=== PATIENT | male | born 1940 | race Caucasian/White ===

== ENCOUNTER → 2019-12-28 | Outpatient (CLI) | payer OTHER ==
[~2019-12-28] MED LIST: ASPIR 8181 MG PO; ATENOLOL50 MG PO; CLOPIDOGREL75 MG PO; GLYBURIDE-METF1 EACH PO; PRAVASTATIN SOD20 MG PO; VITAMIN D1000 UNIT PO; ZESTRIL20 MG PO
--- NOTE | 2019-12-28 10:19 | Diagnostic Imaging Report ---
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 No focal consolidation or pulmonary edema. Pleura:No pleural effusion. No pneumothorax. Heart/Mediastinum:The cardiomediastinal silhouette is normal in size and contour. Bones/Soft Tissues: No acute osseous abnormality. Mild to moderate degenerative changes of the spine are noted. Upper abdomen: Unremarkable. IMPRESSION: No suspicious infiltrate or calcification. Consider cross-sectional imaging for more sensitive evaluation if clinically indicated. Signed by: Maynor Mckay MD on 12/28/2019 10:15 AM
== END ==
LOC: RAD 09:12
PROVIDERS: ATTEND Family Medicine
DX: J61 Pneumoconiosis due to asbestos and other mineral fibers (principal)
CPT/HCPCS: 71046

== ENCOUNTER → 2020-05-23 | Outpatient (CLI) | payer MEDICARE | LOC: RAD 07:57 | PROVIDERS: ATTEND Family Medicine | DX: R42 Dizziness and giddiness (principal); I10 Essential (primary) hypertension | CPT/HCPCS: 93306; 93880 ==

== ENCOUNTER 2021-10-24 11:38 | Emergency (ER) | payer MEDICARE ==
[~2021-10-24] VITALS: Ht 170.2 cm; Wt 57.2 kg
[2021-10-24 13:04] LABS: EOSINOPHILS % 0.4 % (0.0-6.0); HEMATOCRIT 44.5 % (38.2-49.6); HEMOGLOBIN 14.6 g/dL (14.0-18.0); LYMPHOCYTES # (AUTO) 0.9 (1.0-3.2); LYMPHOCYTES % 10.9 % (18.0-39.1); MEAN CORPUSCULAR HEMOGLOBIN 28.9 pg (28-32); MEAN CORPUSCULAR HGB CONC 32.8 g/dL (31-35); MEAN CORPUSCULAR VOLUME 88.1 fL (81-99); MONOCYTES # (AUTO) 0.8 (0.2-0.8); MONOCYTES % 9.1 % (4.4-11.3); NEUTROPHILS # (AUTO) 6.8 (2.1-6.9); NEUTROPHILS % 79.2 % (38.7-80.0); PLATELET COUNT 247 x10e3/uL (140-360); RED BLOOD COUNT 5.05 x10e6/uL (4.3-5.7); RED CELL DISTRIBUTION WIDTH 13.1 % (11.7-14.4)
[2021-10-24 13:25] LABS: ALBUMIN 3.5 g/dL (3.5-5.0); ALBUMIN/GLOBULIN RATIO 1.1 (0.8-2.0); ANION GAP 14.6 mmol/L (8-16); CALCIUM 8.5 mg/dL (8.4-10.2); CREATININE, SERUM 0.85 mg/dL (0.72-1.25); POTASSIUM 3.6 mmol/L (3.5-5.1)
[2021-10-24 13:52] LABS: COLOR,URINE YELLOW (YELLOW)
[2021-10-24 13:56] LABS: LEUKOCYTE ESTERASE ,URINE NEGATIVE (NEGATIVE)
[2021-10-24 13:57] LABS: CLARITY,URINE CLEAR (CLEAR); NITRITE,URINE NEGATIVE (NEGATIVE)
[2021-10-24 13:58] LABS: KETONES,URINE NEGATIVE (NEGATIVE); PROTEIN,URINE DIPSTICK NEGATIVE (NEGATIVE); URINE UROBILINOGEN 1 mg/dL (0.2 - 1)
[2021-10-24 14:00] LABS: RBC,URINE 0-5 /HPF (0-5); WBC,URINE (MAN) 0-5 /HPF (0-5)
[2021-10-24 14:01] LABS: AMORPHOUS SEDIMENT,URINE MODERATE (FEW); BACTERIA,URINE FEW /HPF; EPITHELIAL CELLS,URINE FEW /LPF
[2021-10-24 15:07] VITALS: BP 125/74
== END 2021-10-24 14:50 | disposition home or self-care (01) ==
LOC: ER 11:57
DX: R53.1 Weakness (principal); U09.9 Post COVID-19 condition, unspecified; I10 Essential (primary) hypertension; G30.9 Alzheimer's disease, unspecified; F02.80 Dementia in other diseases classified elsewhere, unspecified severity, without behavioral disturbance, psychotic disturbance, mood disturbance, and anxiety; Z95.810 Presence of automatic (implantable) cardiac defibrillator
CPT/HCPCS: 36415; 71045; 80053; 81001; 84484; 85025

== ENCOUNTER 2023-12-27 05:53 | Day surgery (SDC) | payer MEDICARE ==
[2023-12-23 13:35] LABS: BASOPHILS # (AUTO) 0.1 (0.0-0.1); EOSINOPHILS # (AUTO) 0.3 (0.0-0.4); EOSINOPHILS % 4.5 % (0.0-6.0); HEMATOCRIT 43.4 % (38.2-49.6); HEMOGLOBIN 13.9 g/dL (14.0-18.0); LYMPHOCYTES # (AUTO) 1.9 (1.0-3.2); LYMPHOCYTES % 26.8 % (18.0-39.1); MEAN CORPUSCULAR HEMOGLOBIN 30.8 pg (28-32); MEAN CORPUSCULAR VOLUME 96.2 fL (81-99); MONOCYTES # (AUTO) 0.5 (0.2-0.8); MONOCYTES % 6.7 % (4.4-11.3); NEUTROPHILS # (AUTO) 4.3 (2.1-6.9); NEUTROPHILS % 60.7 % (38.7-80.0); PLATELET COUNT 236 x10e3/uL (140-360); RED BLOOD COUNT 4.51 x10e6/uL (4.3-5.7); RED CELL DISTRIBUTION WIDTH 12.7 % (11.7-14.4); WHITE BLOOD COUNT 7.05 x10e3/uL (4.8-10.8)
[2023-12-23 13:53] LABS: INR 1.13; PROTHROMBIN TIME 15.1 seconds (11.9-14.5)
[2023-12-23 13:54] LABS: PARTIAL THROMBOPLASTIN TIME 45.2 seconds (23.8-35.5)
[2023-12-23 13:59] LABS: ANION GAP 14.4 mmol/L (8-16); CREATININE, SERUM 0.97 mg/dL (0.72-1.25); POTASSIUM 4.4 mmol/L (3.5-5.1)
[2023-12-23 14:01] LABS: CALCIUM 9.9 mg/dL (8.4-10.2)
[~2023-12-27] VITALS: Ht 172.7 cm; Wt 61.2 kg
[2023-12-27] VITALS (15 sets, daily range): BP systolic 122–153; BP diastolic 77–100; PULSE 60–66; RESP 12–19; TEMP 96.7–97; O2SAT 100
[~2023-12-27 05:53] MED LIST changes: +ASPIRIN EC81 MG PO; +MEMANTINE HCL5 MG; +MIDODRINE HCL2.5 MG PO; +SERTRALINE HCL50 MG PO
[2023-12-27] MEDS ORDERED: SODIUM CHLORIDE 0.9% 1000ML 1,000 ML ONE (06:43)
[2023-12-27] MEDS ORDERED: HEPARIN SOD (PORCINE) 1000 UNIT/ML 30ML ONE (06:52)
[2023-12-27] MEDS ORDERED: VERAPAMIL HCL 2.5 MG/ML 2 ML VIAL ONE (06:52)
[2023-12-27] MEDS ORDERED: HEPARIN SOD/SOD CHLORIDE 2,000 ML ONE (06:53)
[2023-12-27] MEDS ORDERED: NITROGLYCERIN/D5W 200 MCG/ML 250 ML ONE (06:53)
[2023-12-27] MEDS ORDERED: IOPAMIDOL 370 MG/ML 100 ML INFUS..BTL INJ ONE (06:53)
[2023-12-27] MEDS ORDERED: LIDOCAINE HCL 2% LOCAL 20 ML VIAL ONE (06:53)
[2023-12-27] MEDS ORDERED: MIDAZOLAM HCL 2 MG/2 ML VIAL ONE (07:25)
[2023-12-27] MEDS ORDERED: FENTANYL CITRATE/PF 100MCG/2 ML INJ ONE (07:26)
[2023-12-27] MEDS ORDERED: PHENYLEPHRINE HCL 1% 10 MG/ML VIAL ONE (07:51)
[2023-12-27] MEDS ORDERED: SODIUM CHLORIDE 0.9% 100 ML ONE (07:51)
[2023-12-27] MEDS ORDERED: ASPIRIN 325 MG TAB ONE (08:15)
[2023-12-27] MEDS ORDERED: CLOPIDOGREL BISULFATE 75 MG TAB ONE (08:15)
== END 2023-12-27 13:15 | disposition home or self-care (01) ==
LOC: CATH LAB 05:53
PROVIDERS: ATTEND Internal Medicine Cardiovascular Disease
DX: I25.110 Atherosclerotic heart disease of native coronary artery with unstable angina pectoris (principal); I10 Essential (primary) hypertension; E78.5 Hyperlipidemia, unspecified; E11.9 Type 2 diabetes mellitus without complications; Z01.810 Encounter for preprocedural cardiovascular examination; Z01.812 Encounter for preprocedural laboratory examination; Z01.818 Encounter for other preprocedural examination; Z79.02 Long term (current) use of antithrombotics/antiplatelets; Z79.82 Long term (current) use of aspirin; Z79.899 Other long term (current) drug therapy; Z87.891 Personal history of nicotine dependence
CPT/HCPCS: 36415; 71046; 76937; 80048; 80061; 85025; 85610; 85730; 93005; C1725 ×2; C1769; C1874; C1887; C9600; J1644; J2003; J2250; J2371; J3010; J7030; J7050; Q9967; 92928; 93454; 99152; 99153